=== PATIENT | female | born 1945 | race Caucasian/White ===

== ENCOUNTER 2016-05-30 14:23 | Emergency (ER) | payer MEDICARE, BC ==
[~2016-05-30] VITALS: Ht 157.5 cm; Wt 66.0 kg
[2016-05-30 14:42] VITALS: Ht 157.5 cm; Wt 66.0 kg
--- NOTE | 2016-05-30 16:46 | ERD ---
ER Documentation Chief Complaint Date/Time DATE: 05/30/16 TIME: 16:34 Chief Complaint LOPEZ, LEFT EYE REDNESS X3 DAYS, SENT FOR CT FROM CLINIC HPI Pleasant 70-year-old female presenting to emergency department for left eye redness. Patient reports symptoms started abruptly 3 days ago. Patient was playing cards with a friend felt something go into her eye she immediately shut her eye and started rubbing it. When she stopped rubbing it her eye with blood red. Symptoms started on Sunday. Patient went to her clinic yesterday afternoon. Patient had a EKG done with computer reading as left ventricular hypertrophy. Patient's blood pressure is 140 ++systolic patient, and is on Zantac for abdominal bloating and gas. It is very concerned that she needs a CAT scan, is fearful that she had a stroke. Patient is very anxious, patient reports intermittent left-sided headache intermittently for the last few months. Patient has been treating it with massage, patient has tried not over- the-counter medication but has tried vitamins and herbal teas.. Patient reports stress at home, and financial. Patient speech is clear, smile is symmetric, able to move all extremities without deficit. Patient thought process is clear. Patient is in no acute distress, negative for any symptoms of CVA or TIA. Obvious subconjunctival hemorrhage. Patient denies pain or change in vision states that she does need glasses. Speech is clear, pupils equal round and reactive to light and accommodation, sensation to light touch is intact bilaterally. There is no pronator drift. Finger to nose test is intact bilaterally. Director Software strength is 5/5. Flexion and extension is intact bilaterally ROS All systems reviewed and are negative except as per history of present illness. Medications Home Meds Active Scripts Glycerin/Propylene Glycol (Moisture Eyes Drops) 30 Ml Drops, 30 ML OP BID for 14 Days, #1 BOTTLE Prov:NO CASON 05/30/16 Allergies Allergies: Coded Allergies: No Known Allergy (Unverified , 05/30/16) Physical Exam Vitals Vital Signs Date Time Temp Pulse Resp B/P Pulse Ox O2 Delivery O2 Flow Rate FiO2 05/30/16 14:42 98.6 88 20 143/84 94 Vitals stable, triage notes reviewed Physical Exam Const: No acute distress Head: Atraumatic Eyes: Left subconjunctival hemorrhage, positive EOMI, PERRLA ENT: Tympanic membranes translucent, nasal mucosa moist, septum midline, pharynx pink, uvula rises and falls with pronation, tongue is midline Neck: Full range of motion..~ No meningismus. Resp: Clear to auscultation bilaterally Cardio: Regular rate and rhythm, no murmurs Abd: Soft, non tender, non distended. Normal bowel sounds Skin: No petechiae or rashes Back: No midline or flank tenderness Ext: No cyanosis, or edema Neur: Alert and oriented, excitable, speech is clear and non- muffled, thought process is clear Face: EOMI, face and pharynx with normal sensation and function, smile is symmetric no droop Motor: Normal strength throughout Sensation: Normal sensation throughout Speech: Normal Cerebel: Normal coordination Normal gait Normal finger to nose DTR: 2+ and symmetric upper/lower extremities Psych: Normal Mood and Affect Procedures/MDM This pleasant 70-year-old female coming in to emergency department after being seen yesterday at clinic. Patient reports subconjunctival hemorrhage after rubbing her eye 3 days ago. Patient is excited, anxious, fearful that she is having a stroke. [place] stroke scale negative for CVA. Patient reports intermittent headaches for the last few months, headaches are on the left side. Patient reports neck muscle pain and stress. Patient does not remember the exact time headache started, has taken no medication for symptomatic relief, this is not the worse headache that she is ever had, reports that her muscles are tight and she needs a massage. Patient has EKG and UA with her from the clinic that she keeps referring to as there is something wrong with her heart, patient has scheduled follow-up testing with health clinic, ECG reads left ventricle hypertrophy, with blood pressure 143/84. Nurse practitioner spends 15 -20 minutes with teaching, as to current diagnosis, and what her next step should be related to a subconjunctival hemorrhage. I feel patient is stable for outpatient therapy, follow-up with ophthalmology references provided, continue all current plan treatments with routine health clinic. I feel the patient is stable for discharge at this time. I have discussed results, examination findings, the treatment plan with the patient and family present prior to discharge. Strict indications for emergent reevaluation blurred vision , change in speech, difficulty moving limbs. Headache not controlled with over- the-counter medication. Nausea, vomiting, chest pain, palpitations, or shortness of breath., side effects of medication were also discussed. All questions were answered. Patient verbalizes understanding and agrees with plan of care. Departure Diagnosis: Primary Impression: Subconjunctival bleed Laterality: left Qualified Code: H11.32 - Subconjunctival bleed, left Condition: Good Patient Instructions: Subconjunctival Hemorrhage Referrals: JEREMY BENEDICT MD,MISTY CAREY,JANIE PEREZ MD, MD Additional Instructions: Thank you for for coming to [facility] for your care today. Please ask your nurse or provider if you have questions about your care today and do not leave until all your questions have been answered. Please use any medications given as directed and follow-up with your doctor (or the doctor you were referred to) in the next 2-3 days. If you do not have a primary care doctor you may follow up at the [facility] (listed below). You may also use motrin and tylenol as needed for fever and/or pain unless instructed otherwise by your provider or nurse. Indications for more urgent follow-up have been discussed, but you may return to the Emergency Department at ANY time for any worrisome or worsening symptoms. If you have abdominal pain, please know that no test or exam you received is perfect and you should follow up within 8 hours for continued pain. If you had any imaging studies today, such as an X-Ray or CT Scan, these studies will be reviewed later by a radiologist. You will be called if there are important findings that were not identified today, so make sure the contact information you provided at registration is correct. If you received any narcotic pain control medicine today, such as Vicodin, Morphine or Dilaudid, your coordination and judgment may be affected for a number of hours. Please do not drive or operate heavy machinery, and you may want someone to assist you at home. If you were given a prescription for narcotic medication, be aware that it is very addictive- use sparingly and only if necessary. NO CASON May 30, 2016 16:44
[2016-05-30] MEDS ORDERED: GLYC30DR OP (16:47)
== END 2016-05-30 16:49 | disposition home or self-care (01) ==
LOC: FTE 14:23
DX: H11.32 Conjunctival hemorrhage, left eye (principal)
CPT/HCPCS: 99283